=== PATIENT | female | born 1950 ===

== ENCOUNTER 2016-11-19 16:12 | Emergency (ER) | payer OTHER ==
[2016-11-19 16:12] VITALS: BMI 22.2
[2016-11-19 16:17] VITALS: PULSE 78; O2SAT 96
[2016-11-19] MEDS ORDERED: Oxycodone/Acetaminophen 5/325 mg Tab PO STA (17:35)
--- NOTE | 2016-11-19 17:36 | C.PDOC ---
History Of Present Illness A 66 year old female, with a past medical history of HTN, HCL, Asthma, GERD, presents to the emergency room with complaints of right calf pain and right knee pain that has developed over the last 4 weeks. Patient describes the pain as aching and notes that the pain is worst with ambulation. Patient "noted some knee cracking." Patient otherwise denies known trauma or injury, headache, dizziness, chest pain, shortness of breath, cough, dyspnea, palpitation, nausea , vomiting, denies recent travel, any previous history of DVT, or any other complaints. Ambulate to ED for evaluation. Time Seen by Provider: 11/19/16 17:22 Chief Complaint (Nursing): Lower Extremity Problem/Injury History Per: Patient History/Exam Limitations: no limitations Onset/Duration Of Symptoms: Gradual, Other (4 weeks) Current Symptoms Are (Timing): Still Present Severity: Mild Past Medical History Reviewed: Historical Data, Nursing Documentation, Vital Signs Vital Signs: Last Vital Signs Temp 97.2 F L 11/19/16 16:15 Pulse 78 11/19/16 16:15 Resp 16 11/19/16 16:15 BP 164/83 H 11/19/16 16:15 Pulse Ox 96 11/19/16 18:20 - Medical History PMH: Asthma, GERD, HTN, Hypercholesterolemia Family History: States: No Known Family Hx - Social History Hx Alcohol Use: Yes Hx Substance Use: No - Immunization History Hx Influenza Vaccination: No Hx Pneumococcal Vaccination: No Review Of Systems Review Of Systems: ROS cannot be obtained secondary to pt's inabilty to answer questions. Constitutional: Negative for: Fever, Chills Cardiovascular: Negative for: Chest Pain Respiratory: Negative for: Cough, Shortness of Breath Gastrointestinal: Negative for: Nausea, Vomiting, Diarrhea Musculoskeletal: Positive for: Other (Right calf pain; Right knee pain) Physical Exam - Physical Exam Appears: Well, Non-toxic Skin: Normal Color, Warm, Dry, No Rash Head: Atraumatic, Normacephalic Eye(s): bilateral: Normal Inspection, PERRL, EOMI Ear(s): Bilateral: Normal Oral Mucosa: Moist Neck: Normal ROM, No Midline Cervical Tenderness, No Paracervical Tenderness, Supple Cardiovascular: Rhythm Regular Respiratory: Normal Breath Sounds, No Rales, No Rhonchi, No Wheezing Gastrointestinal/Abdominal: Soft, No Tenderness, No Guarding, No Rebound Back: No CVA Tenderness, No Vertebral Tenderness, No Paraspinal Tenderness Extremity: Normal ROM, Tenderness (Diffuse right knee tenderness extending down to right calf.), No Deformity, No Swelling Pulses: Left Dorsalis Pedis: Normal, Right Dorsalis Pedis: Normal Neurological/Psych: Oriented x3, Normal Speech, Normal Cognition, Normal Motor, Normal Sensation, Normal Reflexes Gait: Steady ED Course And Treatment O2 Sat by Pulse Oximetry: 96 Pulse Ox Interpretation: Normal - Other Rad Right knee X-Ray: Interpreted by Me, Viewed By Me Interpretation: (+) DJD, no acute fx or dislocation Progress Note: On re-evaluation, pt is afebrile, hemodynamicaly stable. Non- toxic. AMbulatory in ED with stable gait. RLE: mild Right knee tenderness and calf tenderness r/o DVT. FAROM, no neurovascular deficits. Neurologicaly intact. Pt need Doppler US of RLE that is not available at present time at [facility]. Pt was offered anticoagulation therapy prophylacticly until Doppler test is comform, pt refused at present time. Xray review and appears without acute abnormalities. Pt advised to return to ED tomorrow without fail for Doppler US r/o DVT. pT was explained complication of condition. Pt understand the comdition and Will return tomorrow for further testing. Disposition Counseled Patient/Family Regarding: Studies Performed, Diagnosis, Need For Followup, Rx Given - Disposition Referrals: Sydni Sanchez MD [Medical Doctor] - Disposition: HOME/ ROUTINE Disposition Time: 17:50 Condition: STABLE Additional Instructions: RETURN TO ED TOMORROW 11/20/16 FOR DUPPLER US OF RIGHT LOWER EXTRIMITIES R/O DVT. Prescriptions: oxyCODONE/Acetaminophen [Percocet 5/325 mg Tab] 1 tab PO BID PRN #4 tab PRN Reason: Pain Instructions: Deep Venous Thrombosis (ED), Leg Cramps (ED), Swollen Knee Joint (ED) Print Language: AZERBAIJANI - Clinical Impression Clinical Impression: Arthralgia of knee, Calf pain - Scribe Statement The provider has reviewed the documentation as recorded by the Zelda Salcido Provider Scribe Attestation: All medical record entries made by the Scribe were at my direction and personally dictated by me. I have reviewed the chart and agree that the record accurately reflects my personal performance of the history, physical exam, medical decision making, and the department course for this patient. I have also personally directed, reviewed, and agree with the discharge instructions and disposition.
[2016-11-19] MEDS ORDERED: Oxycodone/Acetaminophen 5/325 mg Tab ONE (17:42)
[2016-11-19 18:21] VITALS: BP 126/71; RESP 18; TEMP 98.2
--- NOTE | 2016-11-19 18:35 | RAD ---
PROCEDURE: Right Knee Radiographs. HISTORY: COMPARISON: None available. FINDINGS: BONES: No acute displaced fracture. Degenerative changes including tenting of the intercondylar notch. JOINTS: No dislocation. JOINT EFFUSION: No significant joint effusion. OTHER FINDINGS: None. IMPRESSION: Degenerative changes including tenting of the intracondylar notch. No acute displaced fracture, dislocation, or significant joint effusion identified. If symptoms persist, or if there is continued clinical concern, x-ray follow-up in 7-10 days should be considered.
== END 2016-11-19 18:25 | disposition home or self-care (01) ==
LOC: C.ER 16:12
DX: M25.561 Pain in right knee (principal); M79.661 Pain in right lower leg

== ENCOUNTER 2016-11-20 07:52 | Emergency (ER) | payer OTHER ==
[2016-11-20 07:53] VITALS: BMI 22.2
--- NOTE | 2016-11-20 08:59 | C.PDOC ---
History Of Present Illness 66 y/o female presents to the ED with complains of pain and swelling to right lower extremity x2 weeks. Pt was seen here yesterday for same, told to return today for doppler to rule out DVT. Pt reports pain with walking 8/10, pain is constant and throbbing. Pt denies headache, nausea, vomiting, diarrhea, chest pain, fever, SOB or any other complaints. PMHx arthritis. Time Seen by Provider: 11/20/16 08:11 Chief Complaint (Nursing): Lower Extremity Problem/Injury History Per: Patient History/Exam Limitations: no limitations Onset/Duration Of Symptoms: Days Current Symptoms Are (Timing): Still Present Severity: Moderate Pain Scale Rating Of: 8 Recent travel outside of the [place]: No Past Medical History Reviewed: Historical Data, Nursing Documentation, Vital Signs Vital Signs: Last Vital Signs Temp 97.8 F 11/20/16 08:00 Pulse 69 11/20/16 08:00 Resp 20 11/20/16 08:00 BP 153/85 H 11/20/16 08:00 Pulse Ox 95 11/20/16 09:01 - Medical History PMH: Asthma, GERD, HTN, Hypercholesterolemia Family History: States: Unknown Family Hx - Social History Hx Alcohol Use: Yes Hx Substance Use: No - Immunization History Hx Influenza Vaccination: Yes Hx Pneumococcal Vaccination: No Review Of Systems Except As Marked, All Systems Reviewed And Found Negative. Constitutional: Negative for: Fever, Chills Cardiovascular: Negative for: Chest Pain Respiratory: Negative for: Shortness of Breath Gastrointestinal: Negative for: Nausea, Vomiting, Diarrhea Musculoskeletal: Positive for: Leg Pain (right lower leg pain and swelling) Neurological: Negative for: Headache Physical Exam - Physical Exam Appears: Non-toxic, No Acute Distress Skin: Warm, Dry, No Rash Head: Atraumatic, Normacephalic Chest: Symmetrical Cardiovascular: Rhythm Regular, No Murmur Respiratory: Normal Breath Sounds, No Rales, No Rhonchi, No Wheezing Gastrointestinal/Abdominal: Soft, No Tenderness Extremity: Normal ROM, No Calf Tenderness, Capillary Refill (<2 seconds), Other (Right lower extremity mild swelling, right leg more firm than left. No redness , no significant edema. Warmth over right knee) Pulses: Left Dorsalis Pedis: Normal, Right Dorsalis Pedis: Normal Neurological/Psych: Oriented x3, Normal Speech, Normal Motor, Normal Sensation ED Course And Treatment O2 Sat by Pulse Oximetry: 95 (room air) Pulse Ox Interpretation: Normal Medical Decision Making Medical Decision Making: Differential Dx: arthritis in knee joints Plan: * Motrin, Venous doppler unremarkable. Patient feeling better. will d/c home. Disposition Counseled Patient/Family Regarding: Studies Performed, Diagnosis, Need For Followup, Rx Given - Disposition Disposition: HOME/ ROUTINE Disposition Time: 10:28 Condition: STABLE Prescriptions: Ibuprofen [Motrin] 600 mg PO TID #15 tab Instructions: Arthritis (ED) Forms: Gen Discharge Inst Estonian - POA Present On Arrival: None - Clinical Impression Clinical Impression: Arthritis - Scribe Statement The provider has reviewed the documentation as recorded by the Zelda Fernandez Provider Attestation: All medical record entries made by the Zelda were at my direction and personally dictated by me. I have reviewed the chart and agree that the record accurately reflects my personal performance of the history, physical exam, medical decision making, and the department course for this patient. I have also personally directed, reviewed, and agree with the discharge instructions and disposition.
[2016-11-20 10:29] VITALS: BP 139/79; PULSE 62; RESP 17; TEMP 97.7
[2016-11-20 10:30] VITALS: O2SAT 95
--- NOTE | 2016-11-20 18:15 | VASCLAB ---
PROCEDURE: Right Lower Extremity Venous Duplex Exam. HISTORY: pain and swelling PRIORS: None. TECHNIQUE: Right common femoral, femoral, popliteal and posterior tibial, peroneal and great saphenous veins were evaluated. Flow was assessed with color Doppler, compressibility, assessment of phasic flow and augmentation response. Report prepared by CONSTANTIN Baker, RVT FINDINGS: RIGHT: 1. Common Femoral Vein: 1.1. Compressibility - Fully compressible: Thrombus - None: Flow - Phasic: Augmentation -Normal: Reflux - None. 2. Femoral Vein: 2.1. Compressibility - Fully compressible: Thrombus - None: Flow - Phasic: Augmentation -Normal: Reflux - None. 3. Popliteal Vein: 3.1. Compressibility - Fully compressible: Thrombus - None: Flow - Phasic: Augmentation -Normal: Reflux - None. 4. Posterior Tibial Vein: 4.1. Compressibility - Fully compressible: Thrombus - None: Flow - Phasic: Augmentation -Normal: Reflux - None. 5. Peroneal Vein: 5.1. Compressibility - Fully compressible: Thrombus - None: Flow - Phasic: Augmentation -Normal: Reflux - None. 6. Great Saphenous Vein: 6.1. Compressibility - Fully compressible: Thrombus -None: Flow - Phasic: Augmentation - Normal: Reflux - None. OTHER FINDINGS: IMPRESSION: No evidence of deep or superficial vein thrombosis of the right lower extremity with excellent venous flow. Normal valve function noted of the right side. Normal venous flow noted in the left common femoral vein.
== END 2016-11-20 11:10 | disposition home or self-care (01) ==
LOC: C.ER 07:52
DX: M13.861 Other specified arthritis, right knee (principal)

== ENCOUNTER → 2017-06-17 15:20 | Emergency (ER) | payer OTHER ==
[2017-06-17 15:21] VITALS: BMI 22.2
== END | disposition left against medical advice (07) ==
LOC: C.ER 15:20
DX: Z02.89 Encounter for other administrative examinations (principal); R53.1 Weakness

== ENCOUNTER 2017-09-01 16:55 | Emergency (ER) | payer OTHER ==
[2017-09-01 16:55] VITALS: BMI 22.2
[2017-09-01 18:12] VITALS: RESP 20
[2017-09-01] MEDS ORDERED: Sodium Chloride 0.9% 1,000 ML IV STA (19:28)
[2017-09-01] MEDS ORDERED: Sodium Chloride 0.9% 1,000 ML ONE (19:40)
--- NOTE | 2017-09-01 20:28 | C.PDOC ---
History Of Present Illness 66 year old female presents to the ED for evaluation of diffuse abdominal pain, nausea, generalized malaise, generalized body aches and several episodes of diarrhea which began yesterday. Patient denies fever, chills, cough, sick contacts and recent travel. Time Seen by Provider: 09/01/17 19:24 Chief Complaint (Nursing): Flu-like Symptoms History Per: Patient History/Exam Limitations: no limitations Onset/Duration Of Symptoms: Hrs Current Symptoms Are (Timing): Still Present Sick Contacts (Context): None Associated Symptoms: Nausea, Diarrhea. denies: Fever, Chills, Cough, Sputum Recent travel outside of the [place]: No Additional History Per: Patient Past Medical History Reviewed: Historical Data, Nursing Documentation, Vital Signs Vital Signs: Last Vital Signs Temp 99.6 F 09/01/17 18:07 Pulse 97 H 09/01/17 18:07 Resp 20 09/01/17 18:07 BP 109/67 09/01/17 18:07 Pulse Ox 96 09/01/17 20:43 - Medical History PMH: Arthritis, Asthma, Gastritis, GERD, HTN, Hypercholesterolemia Surgical History: No Surg Hx Family History: States: Unknown Family Hx - Social History Hx Alcohol Use: No Hx Substance Use: No - Immunization History Hx Tetanus Toxoid Vaccination: Yes Hx Influenza Vaccination: Yes Hx Pneumococcal Vaccination: Yes Review Of Systems Constitutional: Positive for: Malaise. Negative for: Fever, Chills Respiratory: Negative for: Cough, Sputum Gastrointestinal: Positive for: Nausea, Abdominal Pain (diffuse ), Diarrhea Musculoskeletal: Positive for: Other (generalized body aches ) Physical Exam - Physical Exam Appears: Non-toxic, No Acute Distress Skin: Normal Color, Warm, Dry Head: Atraumatic, Normacephalic Eye(s): bilateral: Normal Inspection, PERRL, EOMI Oral Mucosa: Moist Neck: Supple Chest: Symmetrical, No Deformity, No Tenderness Cardiovascular: Rhythm Regular, No Murmur Respiratory: Normal Breath Sounds, No Rales, No Rhonchi, No Wheezing Gastrointestinal/Abdominal: Soft, Tenderness (mild, diffuse ), No Guarding, No Rebound Extremity: Normal ROM, Capillary Refill (less than 2 seconds ) Neurological/Psych: Oriented x3, Normal Speech, Normal Cognition, Normal Motor, Normal Sensation Gait: Steady ED Course And Treatment - Laboratory Results Result Diagrams: 09/01/17 20:18 09/01/17 20:18 O2 Sat by Pulse Oximetry: 96 (on RA) Pulse Ox Interpretation: Normal Progress Note: Bloodwork, urinalysis, Influenza A/B swabs ordered. Patient is negative for Flu A/B. Toradol IVP, Zofran IVP and IV Fluids administered. On reassessment, patient is resting comfortably, showing no signs of distress and reports an improvement in her symptoms. Patient tolerated PO fluidsand is stable for discharge. Pt is advised to follow up with her PMD within 1-2 days for further evaluation and/or return to the ED if symptoms persist or worsen. Reevaluation Time: 21:57 Reassessment Condition: Improved Disposition Counseled Patient/Family Regarding: Diagnosis, Need For Followup, Rx Given - Disposition Referrals: Sydni Sanchez MD [Medical Doctor] - Disposition: HOME/ ROUTINE Disposition Time: 21:57 Condition: STABLE Additional Instructions: Increase PO fluids ( Gatorade, gingerale, sprite, tea No dairy, no solid foods BRAT diet ( May have rice, toast , soup- broth, applesauce, hjello, crackers Return to ER if worse Prescriptions: Ondansetron [Zofran Odt] 4 mg PO TID #6 odt Instructions: Gastroenteritis (ED) Forms: [employer] (Finnish) Print Language: MONGOLIAN - Clinical Impression Clinical Impression: Gastroenteritis, Viral illness - PA / CORPORATE DRIVER / Resident Statement MD/DO has reviewed & agrees with the documentation as recorded. - Scribe Statement The provider has reviewed the documentation as recorded by the Scribe (Saritha Marte) All medical record entries made by the Scribe were at my direction and personally dictated by me. I have reviewed the chart and agree that the record accurately reflects my personal performance of the history, physical exam, medical decision making, and the department course for this patient. I have also personally directed, reviewed, and agree with the discharge instructions and disposition.
[2017-09-01 20:29] LABS: BASO % 0.2 % (0.0-2.0); EOS % 0.3 % (0.0-4.0); HEMOGLOBIN 13.4 g/dL (11.0-16.0); LYMPH # 1.7 K/uL (1.0-4.3); LYMPH % 11.9 % (20.0-40.0); MEAN CELL VOLUME 87.8 fL (81.0-99.0); MEAN CORPUSCULAR HEMOGLOBIN 28.7 pg (27.0-31.0); MEAN CORPUSCULAR HGB CONC 32.7 g/dL (33.0-37.0); MEAN PLATELET VOLUME 8.3 fL (7.2-11.7); MONO % 7.1 % (0.0-10.0); NEUT # 11.5 K/uL (1.8-7.0); NEUT % 80.5 % (50.0-75.0); RBC 4.66 Mil/uL (3.80-5.20); RED CELL DISTRIBUTION WIDTH 13.5 % (11.5-14.5); WHITE BLOOD COUNT 14.3 K/uL (4.8-10.8)
[2017-09-01 20:39] LABS: SQUAMOUS EPITHIAL 2 /hpf (0-5); URINE BILIRUBIN NEGATIVE (NEGATIVE); URINE BLOOD 1+ (NEGATIVE); URINE CLARITY Hazy (Clear); URINE COLOR Yellow (YELLOW); URINE GLUCOSE (UA) NORMAL (Normal); URINE LEUKOCYTE ESTERASE NEG Leu/uL (Negative); URINE NITRATE NEGATIVE (NEGATIVE); URINE PROTEIN NEGATIVE (NEGATIVE); URINE UROBILINOGEN NORMAL mg/dL (0.2-1.0)
[2017-09-01 20:50] LABS: ALB/GLOB RATIO 1.2 (1.0-2.1); ALBUMIN 3.8 g/dL (3.5-5.0); ALT/SGPT 28 U/L (9-52); AST/SGOT 23 U/L (14-36); BLOOD UREA NITROGEN 15 mg/dL (7-17); CALCIUM 8.5 mg/dl (8.6-10.4); GFR AFRICAN-AMERICAN > 60; GFR NON-AFRICAN AMERICAN > 60; LIPASE 68 U/L (23-300)
[2017-09-01 22:16] VITALS: BP 100/60; PULSE 75; TEMP 98.8; O2SAT 95
== END 2017-09-01 22:17 | disposition home or self-care (01) ==
LOC: C.ER 16:55
DX: B34.9 Viral infection, unspecified (principal); K52.9 Noninfective gastroenteritis and colitis, unspecified; E78.00 Pure hypercholesterolemia, unspecified; I10 Essential (primary) hypertension
CPT/HCPCS: 80053; 81001; 83690; 85025; 87804; 96361; 96374; 96375; 99284; J1885; J2405; J7040

== ENCOUNTER 2018-08-28 21:32 | Observation (INO) | payer OTHER ==
[2018-08-28 21:33] VITALS: BMI 22.2
[2018-08-28] MEDS ORDERED: Enoxaparin 40 mg Syringe SC STA (22:09)
[2018-08-28] MEDS ORDERED: Aspirin 325 mg EC Tablets PO STA (22:09)
[2018-08-28] MEDS ORDERED: Enoxaparin 30 mg Syringe ONE (22:38)
[2018-08-28 22:42] LABS: BASO % 0.5 % (0.0-2.0); EOS # 0.2 K/uL (0.0-0.7); EOS % 3.1 % (0.0-4.0); HEMOGLOBIN 13.5 g/dL (11.0-16.0); LYMPH # 3.2 K/uL (1.0-4.3); LYMPH % 46.2 % (20.0-40.0); MEAN CELL VOLUME 88.5 fL (81.0-99.0); MEAN CORPUSCULAR HEMOGLOBIN 29.6 pg (27.0-31.0); MEAN CORPUSCULAR HGB CONC 33.4 g/dL (33.0-37.0); MEAN PLATELET VOLUME 8.3 fL (7.2-11.7); MONO # 0.5 K/uL (0.0-0.8); MONO % 7.6 % (0.0-10.0); NEUT # 2.9 K/uL (1.8-7.0); NEUT % 42.6 % (50.0-75.0); NRBC % 0.1 % (0.0-2.0); RBC 4.58 Mil/uL (3.80-5.20); RED CELL DISTRIBUTION WIDTH 12.8 % (11.5-14.5); WHITE BLOOD COUNT 6.9 K/uL (4.8-10.8)
[2018-08-28 22:48] LABS: INR 0.9; PARTIAL THROMBOPLASTIN TIME 28 SECONDS (21-34)
[2018-08-28 22:49] LABS: D DIMER < 200 ng/mlDDU (0-243); PROTHROMBIN TIME 9.7 SECONDS (9.7-12.2)
[2018-08-28 22:53] LABS: ALB/GLOB RATIO 1.7 (1.0-2.1); ALBUMIN 4.4 g/dL (3.5-5.0); ALT/SGPT 12 U/L (9-52); AST/SGOT 18 U/L (14-36); BLOOD UREA NITROGEN 16 mg/dL (7-17); CALCIUM 9.8 mg/dl (8.6-10.4); GFR NON-AFRICAN AMERICAN > 60
[2018-08-28 23:04] LABS: B-TYPE NATRIURETIC PEPTIDE 62.1 pg/mL (0-900)
--- NOTE | 2018-08-28 23:34 | C.PDOC ---
History Of Present Illness 67 year old female presents to the ER with vague left sided chest pain that is not positionally or digitally reproducible. Denies SOB or palpitations. Time Seen by Provider: 08/28/18 21:53 Chief Complaint (Nursing): Chest Pain History Per: Patient History/Exam Limitations: no limitations Onset/Duration Of Symptoms: Hrs Current Symptoms Are (Timing): Still Present Associated Symptoms: denies: Dyspnea, Other (Palpitations) Modifying Factors: None Exacerbating Factors: None Alleviating Factors: None Recent travel outside of the [place]: No Past Medical History Reviewed: Historical Data, Nursing Documentation, Vital Signs Vital Signs: Last Vital Signs Temp 98.7 F 08/28/18 21:45 Pulse 74 08/28/18 21:45 Resp 20 08/28/18 21:45 BP 180/95 H 08/28/18 21:45 Pulse Ox 96 08/28/18 21:45 - Medical History PMH: Anxiety, Arthritis, Asthma, Depression, Gastritis, GERD, HTN, Hypercholesterolemia Denies: HIV, Chronic Kidney Disease Family History: States: Unknown Family Hx - Social History Hx Alcohol Use: No Hx Substance Use: No - Immunization History Hx Tetanus Toxoid Vaccination: Yes Hx Influenza Vaccination: Yes Hx Pneumococcal Vaccination: Yes Review Of Systems Constitutional: Negative for: Fever, Chills Cardiovascular: Positive for: Chest Pain. Negative for: Palpitations Respiratory: Negative for: Shortness of Breath Gastrointestinal: Negative for: Nausea, Vomiting Neurological: Negative for: Weakness, Numbness Physical Exam - Physical Exam Appears: Non-toxic Skin: Normal Color, Warm, Dry Head: Atraumatic, Normacephalic Eye(s): bilateral: Normal Inspection Oral Mucosa: Moist Chest: Symmetrical, No Tenderness Cardiovascular: Rhythm Regular Respiratory: Normal Breath Sounds, No Rales, No Rhonchi, No Wheezing Gastrointestinal/Abdominal: Soft, No Tenderness Neurological/Psych: Oriented x3, Normal Speech ED Course And Treatment - Laboratory Results Result Diagrams: 08/28/18 22:37 08/28/18 22:37 Lab Results: PT 9.7 SECONDS (9.7-12.2) 08/28/18 22:37 INR 0.9 08/28/18 22:37 APTT 28 SECONDS (21-34) 08/28/18 22:37 D-Dimer, Quantitative < 200 ng/mlDDU (0-243) 08/28/18 22:37 Troponin I < 0.0120 ng/mL (0.00-0.120) 08/28/18 22:37 NT-Pro-B Natriuret Pep 62.1 pg/mL (0-900) 08/28/18 22:37 Total Bilirubin 0.4 mg/dL (0.2-1.3) 08/28/18 22:37 AST 18 U/L (14-36) 08/28/18 22:37 ALT 12 U/L (9-52) 08/28/18 22:37 Alkaline Phosphatase 64 U/L (38-126) 08/28/18 22:37 Total Protein 7.1 g/dL (6.3-8.3) 08/28/18 22:37 Albumin 4.4 g/dL (3.5-5.0) 08/28/18 22:37 Globulin 2.6 gm/dL (2.2-3.9) 08/28/18 22:37 Albumin/Globulin Ratio 1.7 (1.0-2.1) 08/28/18 22:37 Lab Interpretation: Normal (trop neg, d-dimer neg.) ECG: Interpreted By Me ECG Rhythm: Sinus Rhythm ECG Interpretation: Abnormal Rate From EC (t^ inv V4/5, no prior to compare) O2 Sat by Pulse Oximetry: 96 (Room air) Pulse Ox Interpretation: Normal - Radiology CXR: Interpreted by Me CXR Interpretation: Yes: No Acute Disease Progress Note: asa/lovenox given Reevaluation Time: 00:19 Reassessment Condition: Improved - Physician Consult Information Outcome Of Conversation: 2330: calls to Dr. Carla Sanchez- no response. 0030: d/w Dr. Roscoe Marte- ok to adm Medical Decision Making Medical Decision Making: ? angina vs GERD abn EKG without prior to compare asa/lovenox given Disposition Doctor Will See Patient In The: Hospital Counseled Patient/Family Regarding: Studies Performed, Diagnosis - Disposition Disposition: HOSPITALIZED Disposition Time: 00:20 Condition: GOOD Forms: [facility] (Bermudian) - Clinical Impression Clinical Impression: Chest discomfort - Scribe Statement The provider has reviewed the documentation as recorded by the Scribe Avinash Matthew All medical record entries made by the Scribe were at my direction and personally dictated by me. I have reviewed the chart and agree that the record accurately reflects my personal performance of the history, physical exam, medical decision making, and the department course for this patient. I have also personally directed, reviewed, and agree with the discharge instructions and disposition.
--- NOTE | 2018-08-29 09:20 | RAD ---
Date of service: 08/28/2018 PROCEDURE: CHEST RADIOGRAPH, 1 VIEW HISTORY: SOB COMPARISON: None available. FINDINGS: LUNGS: The lungs are well inflated and clear. PLEURA: No pneumothorax or pleural effusion. CARDIOVASCULAR: The heart is normal in size. No aortic atherosclerotic calcifications present. OSSEOUS STRUCTURES: Within normal limits for the patient's age. VISUALIZED UPPER ABDOMEN: Normal. OTHER FINDINGS: None. IMPRESSION: No active pulmonary disease.
[2018-08-29] MEDS: Enoxaparin 40 mg Syringe SC SCH (09:31)
[2018-08-29 10:04] LABS: BASO % 0.6 % (0.0-2.0); EOS # 0.2 K/uL (0.0-0.7); EOS % 2.7 % (0.0-4.0); HEMOGLOBIN 13.8 g/dL (11.0-16.0); LYMPH # 2.7 K/uL (1.0-4.3); LYMPH % 39.9 % (20.0-40.0); MEAN CELL VOLUME 87.6 fL (81.0-99.0); MEAN CORPUSCULAR HEMOGLOBIN 29.8 pg (27.0-31.0); MEAN PLATELET VOLUME 8.5 fL (7.2-11.7); MONO # 0.5 K/uL (0.0-0.8); MONO % 7.7 % (0.0-10.0); NEUT # 3.4 K/uL (1.8-7.0); NEUT % 49.1 % (50.0-75.0); RBC 4.63 Mil/uL (3.80-5.20); RED CELL DISTRIBUTION WIDTH 12.7 % (11.5-14.5); WHITE BLOOD COUNT 6.9 K/uL (4.8-10.8)
[2018-08-29 10:20] LABS: ALB/GLOB RATIO 1.9 (1.0-2.1); ALBUMIN 4.7 g/dL (3.5-5.0); ALT/SGPT 16 U/L (9-52); AST/SGOT 18 U/L (14-36); BLOOD UREA NITROGEN 13 mg/dL (7-17); CALCIUM 9.2 mg/dl (8.6-10.4); GFR NON-AFRICAN AMERICAN > 60
[2018-08-29 17:20] LABS: CK-MB 0.92 ng/mL (0.0-3.38)
[2018-08-29 18:15] LABS: BARBITURATES, UR NEGATIVE (NEGATIVE); BENZODIAZEPINES, UR NEGATIVE (NEGATIVE); OPIATES, UR NEGATIVE (NEGATIVE); PHENCYCLIDINE, UR NEGATIVE (NEGATIVE)
--- NOTE | 2018-08-29 19:30 | CP.PCM.HP ---
History of Present Illness - History of Present Illness History of Present Illness: 67-year-old female patient with past medical history of arthritis, asthma, depression, gastritis, HTN presents to ER with diffuse left-sided chest pain, not reproducible. No history of fever, chills, N, V, D, SOB or palpitations Present on Admission - Present on Admission Any Indicators Present on Admission: No Past Patient History - Infectious Disease Hx of Infectious Diseases: None - Past Medical History & Family History Past Medical History?: Yes - Past Social History Smoking Status: Never Smoked - CARDIAC Hx Hypercholesterolemia: Yes Hx Hypertension: Yes - PULMONARY Hx Asthma: Yes - NEUROLOGICAL Hx Neurological Disorder: No - HEENT Hx HEENT Problems: No - RENAL Hx Chronic Kidney Disease: No - ENDOCRINE/METABOLIC Hx Endocrine Disorders: No - HEMATOLOGICAL/ONCOLOGICAL Hx Human Immunodeficiency Virus (HIV): No - INTEGUMENTARY Hx Dermatological Problems: No - MUSCULOSKELETAL/RHEUMATOLOGICAL Hx Arthritis: Yes - GASTROINTESTINAL Hx Gastritis: Yes - GENITOURINARY/GYNECOLOGICAL Hx Genitourinary Disorders: No - PSYCHIATRIC Hx Anxiety: Yes Hx Depression: Yes Hx Substance Use: No - SURGICAL HISTORY Hx Surgeries: Yes Hx Section: Yes Hx Orthopedic Surgery: Yes Other/Comment: craniotomy with aneurysm clips - ANESTHESIA Hx Anesthesia: Yes Hx Anesthesia Reactions: No Meds Home Medications: Home Medication List Medication Instructions Recorded Confirmed Type Aspirin [Ecotrin] 81 mg PO DAILY #30 tabec 09/01/18 Rx Clopidogrel [Plavix] 75 mg PO DAILY #30 tab 09/01/18 Rx Rosuvastatin Calcium [Crestor] 10 mg PO HS #30 tab 09/01/18 Rx Allergies/Adverse Reactions: Allergies Allergy/AdvReac Type Severity Reaction Status Date / Time No Known Allergies Allergy Verified 06/21/18 20:38 Physical Exam - Constitutional Appears: Well - Head Exam Head Exam: ATRAUMATIC, NORMAL INSPECTION, NORMOCEPHALIC - Eye Exam Eye Exam: EOMI, Normal appearance, PERRL Pupil Exam: NORMAL ACCOMODATION, PERRL - ENT Exam ENT Exam: Mucous Membranes Moist, Normal Exam - Neck Exam Neck exam: Positive for: Normal Inspection - Respiratory Exam Respiratory Exam: Decreased Breath Sounds - Cardiovascular Exam Cardiovascular Exam: REGULAR RHYTHM, +S1, +S2 - GI/Abdominal Exam GI & Abdominal Exam: Diminished Bowel Sounds, Soft - Rectal Exam Rectal Exam: Deferred Results - Vital Signs Recent Vital Signs: Last Vital Signs Temp 97.7 F 08/29/18 15:42 Pulse 86 08/29/18 15:42 Resp 20 08/29/18 15:42 BP 155/83 H 08/29/18 15:42 Pulse Ox 95 08/29/18 15:42 - Labs Result Diagrams: 08/30/18 07:03 08/30/18 07:03 Labs: Laboratory Results - last 24 hr 08/28/18 08/28/18 08/28/18 22:37 22:37 22:37 WBC 6.9 D RBC 4.58 Hgb 13.5 Hct 40.5 MCV 88.5 MCH 29.6 MCHC 33.4 RDW 12.8 Plt Count 183 MPV 8.3 Neut % (Auto) 42.6 L Lymph % (Auto) 46.2 H Grainger % (Auto) 7.6 Eos % (Auto) 3.1 Baso % (Auto) 0.5 Neut # (Auto) 2.9 Lymph # (Auto) 3.2 Grainger # (Auto) 0.5 Eos # (Auto) 0.2 Baso # (Auto) 0.0 PT 9.7 INR 0.9 APTT 28 D-Dimer, Quantitative < 200 Sodium 140 Potassium 4.2 Chloride 106 Carbon Dioxide 25 Anion Gap 13 BUN 16 Creatinine 0.6 L Est GFR ( Amer) > 60 Est GFR (Non-Af Amer) > 60 Random Glucose 114 H D Calcium 9.8 Total Bilirubin 0.4 AST 18 ALT 12 Alkaline Phosphatase 64 Total Creatine Kinase CK-MB (Mass) Troponin I < 0.0120 NT-Pro-B Natriuret Pep 62.1 Total Protein 7.1 Albumin 4.4 Globulin 2.6 Albumin/Globulin Ratio 1.7 Urine Opiates Screen Urine Methadone Screen Ur Barbiturates Screen Ur Phencyclidine Scrn Ur Amphetamines Screen U Benzodiazepines Scrn U Oth Cocaine Metabols U Cannabinoids Screen 08/29/18 08/29/18 08/29/18 10:00 10:00 16:25 WBC 6.9 RBC 4.63 Hgb 13.8 Hct 40.5 MCV 87.6 MCH 29.8 MCHC 34.0 RDW 12.7 Plt Count 183 MPV 8.5 Neut % (Auto) 49.1 L Lymph % (Auto) 39.9 Grainger % (Auto) 7.7 Eos % (Auto) 2.7 Baso % (Auto) 0.6 Neut # (Auto) 3.4 Lymph # (Auto) 2.7 Grainger # (Auto) 0.5 Eos # (Auto) 0.2 Baso # (Auto) 0.0 PT INR APTT D-Dimer, Quantitative Sodium 140 Potassium 4.2 Chloride 104 Carbon Dioxide 25 Anion Gap 15 BUN 13 Creatinine 0.7 Est GFR ( Amer) > 60 Est GFR (Non-Af Amer) > 60 Random Glucose 131 H Calcium 9.2 Total Bilirubin 0.7 AST 18 ALT 16 Alkaline Phosphatase 65 Total Creatine Kinase 38 CK-MB (Mass) 0.92 Troponin I < 0.0120 < 0.0120 NT-Pro-B Natriuret Pep Total Protein 7.1 Albumin 4.7 Globulin 2.5 Albumin/Globulin Ratio 1.9 Urine Opiates Screen Urine Methadone Screen Ur Barbiturates Screen Ur Phencyclidine Scrn Ur Amphetamines Screen U Benzodiazepines Scrn U Oth Cocaine Metabols U Cannabinoids Screen 08/29/18 17:41 WBC RBC Hgb Hct MCV MCH MCHC RDW Plt Count MPV Neut % (Auto) Lymph % (Auto) Grainger % (Auto) Eos % (Auto) Baso % (Auto) Neut # (Auto) Lymph # (Auto) Grainger # (Auto) Eos # (Auto) Baso # (Auto) PT INR APTT D-Dimer, Quantitative Sodium Potassium Chloride Carbon Dioxide Anion Gap BUN Creatinine Est GFR ( Amer) Est GFR (Non-Af Amer) Random Glucose Calcium Total Bilirubin AST ALT Alkaline Phosphatase Total Creatine Kinase CK-MB (Mass) Troponin I NT-Pro-B Natriuret Pep Total Protein Albumin Globulin Albumin/Globulin Ratio Urine Opiates Screen Negative Urine Methadone Screen Negative Ur Barbiturates Screen Negative Ur Phencyclidine Scrn Negative Ur Amphetamines Screen Negative U Benzodiazepines Scrn Negative U Oth Cocaine Metabols Negative U Cannabinoids Screen Negative
[2018-08-30 01:11] LABS: CK-MB 1.33 ng/mL (0.0-3.38)
--- NOTE | 2018-08-30 02:00 | CON ---
DATE: 08/29/2018 CARDIOLOGY CONSULT REASON FOR CONSULTATION: Chest pain. HISTORY OF PRESENT ILLNESS: The patient is a 67-year-old female who denies having any prior cardiac history, presented because of sharp left sided chest pain. The patient denies any history of shortness of breath, diaphoresis, dizziness, or palpitation. SOCIAL HISTORY: The patient is a nonsmoker. MEDICATIONS: Aspirin 325 mg once a day, Lasix 40 mg intravenously daily, Lovenox 40 mg once daily. REVIEW OF SYSTEMS: No productive cough. No fever or chills. No shortness of breath. PHYSICAL EXAMINATION: GENERAL: The patient is an elderly female who does not appear to be in any distress. VITAL SIGNS: Blood pressure 154/83, heart rate 71, temperature 97.3, respirations 21. HEENT: Normocephalic. CHEST: Clear. HEART: S1 and S2 regular. ABDOMEN: Soft. EXTREMITIES: No edema. LABORATORY DATA: Today's hemoglobin and hematocrit, white count, and platelet count are within normal limit. Today's SMA-7 is within normal limit except for glucose of 131. Two sets of troponins are negative. PT, PTT, INR, and D-Dimer are within normal limit. EKG revealed sinus rhythm and consider lateral ischemia. Chest x-ray, borderline cardiomegaly. ASSESSMENT: 1. Chest pain, myocardial infarction is ruled out. 2. Consider diabetes mellitus. RECOMMENDATIONS: Continue aspirin 325 mg once a day, Lasix 40 mg intravenously once a day, Lovenox 40 mg once a day. Obtain an echocardiographic study and screen. Sergey Shaikh MD
[2018-08-30 07:18] LABS: BASO % 0.5 % (0.0-2.0); EOS # 0.3 K/uL (0.0-0.7); EOS % 3.8 % (0.0-4.0); HEMOGLOBIN 14.1 g/dL (11.0-16.0); LYMPH # 3.1 K/uL (1.0-4.3); LYMPH % 43.3 % (20.0-40.0); MEAN CELL VOLUME 87.4 fL (81.0-99.0); MEAN CORPUSCULAR HEMOGLOBIN 29.9 pg (27.0-31.0); MEAN CORPUSCULAR HGB CONC 34.2 g/dL (33.0-37.0); MEAN PLATELET VOLUME 8.8 fL (7.2-11.7); MONO # 0.6 K/uL (0.0-0.8); MONO % 8.2 % (0.0-10.0); NEUT # 3.2 K/uL (1.8-7.0); NEUT % 44.2 % (50.0-75.0); RBC 4.72 Mil/uL (3.80-5.20); RED CELL DISTRIBUTION WIDTH 12.8 % (11.5-14.5); WHITE BLOOD COUNT 7.2 K/uL (4.8-10.8)
[2018-08-30 07:42] LABS: ALB/GLOB RATIO 1.6 (1.0-2.1); ALBUMIN 4.3 g/dL (3.5-5.0); ALT/SGPT 19 U/L (9-52); AST/SGOT 23 U/L (14-36); BLOOD UREA NITROGEN 19 mg/dL (7-17); CALCIUM 9.7 mg/dl (8.6-10.4); GFR NON-AFRICAN AMERICAN > 60
[2018-08-30] MEDS: Enoxaparin 40 mg Syringe SC SCH (09:43)
--- NOTE | 2018-08-30 10:35 | CP.PCM.PN ---
Subjective - Date & Time of Evaluation Date of Evaluation: 08/30/18 Time of Evaluation: 09:30 - Subjective Subjective: clinically same Objective - Vital Signs/Intake and Output Vital Signs (last 24 hours): Temp Pulse Resp BP Pulse Ox 97.5 F L 83 18 133/82 97 08/30/18 07:30 08/30/18 07:30 08/30/18 07:30 08/30/18 09:43 08/30/18 07:30 - Medications Medications: Current Medications Aspirin (Aspirin) 325 mg PO DAILY [facility] Last Admin: 08/30/18 09:43 Dose: 325 mg Enalapril Maleate (Vasotec) 10 mg PO DAILY [facility] Last Admin: 08/30/18 09:43 Dose: 10 mg Enoxaparin Sodium (Lovenox) 40 mg SC DAILY [facility] Last Admin: 08/30/18 09:43 Dose: 40 mg Furosemide (Lasix) 40 mg IVP DAILY [facility] Last Admin: 08/30/18 09:43 Dose: 40 mg Home Med (Alendronate [Fosamax]) 70 mg PO QWK [facility] Ibuprofen (Motrin Tab) 600 mg PO Q6 PRN PRN Reason: Pain, moderate (4-7) Last Admin: 08/29/18 21:12 Dose: 600 mg Rosuvastatin Calcium (Crestor) 20 mg PO HS [facility] Last Admin: 08/29/18 21:13 Dose: 20 mg - Labs Labs: 08/30/18 07:03 08/30/18 07:03 PT 9.7 SECONDS (9.7-12.2) 08/28/18 22:37 INR 0.9 08/28/18 22:37 APTT 28 SECONDS (21-34) 08/28/18 22:37 - Constitutional Appears: Well - Head Exam Head Exam: ATRAUMATIC, NORMAL INSPECTION, NORMOCEPHALIC - Eye Exam Eye Exam: EOMI, Normal appearance, PERRL Pupil Exam: NORMAL ACCOMODATION, PERRL - ENT Exam ENT Exam: Mucous Membranes Moist, Normal Exam - Neck Exam Neck Exam: Full ROM, Normal Inspection. absent: Lymphadenopathy - Respiratory Exam Respiratory Exam: Decreased Breath Sounds - Cardiovascular Exam Cardiovascular Exam: REGULAR RHYTHM, +S1, +S2 - GI/Abdominal Exam GI & Abdominal Exam: Diminished Bowel Sounds - Rectal Exam Rectal Exam: Deferred
[2018-08-30 16:05] VITALS: RESP 20
--- NOTE | 2018-08-30 21:19 | CARD ---
APPROVED REPORT Date of service: 08/30/2018 EXAM: Two-dimensional and M-mode echocardiogram with Doppler and color Doppler. INDICATION Dizziness and Vertigo Chest Pain RISK FACTORS Hypertension Hyperlipidemia 2D DIMENSIONS IVSd1.0 (0.7-1.1cm)Aortic Root (2D)2.7 (2.0-3.7cm) LVDd3.5 (3.9-5.9cm)PWd1.0 (0.7-1.1cm) LA Lzeaou05 (18-58mL)LVDs2.2 (2.5-4.0cm) FS (%) 36.8 %LVEF (%)67.7 (>50%) LVEF (Avila's)58 %IVC0.00 cm M-Mode DIMENSIONS Left Atrium (MM)3.68 (2.5-4.0cm)IVSd0.91 (0.7-1.1cm) Aortic Root2.93 (2.2-3.7cm)LVDd5.08 (4.0-5.6cm) Aortic Cusp Exc.2.02 (1.5-2.0cm)PWd0.91 (0.7-1.1cm) FS (%) 43 %LVDs2.90 (2.0-3.8cm) LVEF (%)70 (>50%) Mitral Valve MV E Scltrtbt98.1cm/sMV A Foheujyf598.3cm/sE/A ratio0.5 TDI Lateral E' Peak V6.55cm/sMedial E' Peak V5.13cm/sE/Lateral E'8.7 E/Medial E'11.1 Tricuspid Valve TR Peak Srzlyfna072cx/sTR Peak Gr.[id number] LEFT VENTRICLE The left ventricle is normal size. There is normal left ventricular wall thickness. Left ventricle systolic function is normal. The Ejection Fraction is 65-70%. There is normal LV segmental wall motion. Tissue Doppler imaging reveals abnormal left ventricular diastolic dysfunction. RIGHT VENTRICLE The right ventricle is normal size. There is normal right ventricular wall thickness. The right ventricular systolic function is normal. ATRIA The left atrium size is normal. The right atrium size is normal. The interatrial septum is intact with no evidence for an atrial septal defect. AORTIC VALVE The aortic valve is normal in structure. No aortic regurgitation is present. There is no aortic valvular stenosis. MITRAL VALVE The mitral valve is normal in structure. There is no evidence of mitral valve prolapse. There is no mitral valve stenosis. Mitral regurgitation is mild. TRICUSPID VALVE The tricuspid valve is normal in structure. There is mild tricuspid regurgitation. Right ventricular systolic pressure is estimated at 30-40 mmHg. There is mild pulmonary hypertension. PULMONIC VALVE The pulmonic valve is not well visualized. There is no pulmonic valvular regurgitation. GREAT VESSELS The aortic root is normal in size. PERICARDIAL EFFUSION There is no significant pericardial effusion. <Conclusion> Left ventricle systolic function is normal. The Ejection Fraction is 65-70%. Diastolic dysfunction. No aortic regurgitation is present. Mitral regurgitation is mild. There is mild tricuspid regurgitation. There is mild pulmonary hypertension. There is no pulmonic valvular regurgitation.
--- NOTE | 2018-08-30 22:52 | PN ---
DATE: 08/30/2018 SUBJECTIVE: The patient denies any chest pain. PHYSICAL EXAMINATION: VITAL SIGNS: Blood pressure 112/67, heart rate 81, temperature 97.9, and respirations 20. HEENT: Normocephalic. CHEST: Clear. HEART: S1 and S2 regular. EXTREMITIES: No edema. LABORATORY DATA: Today's hemoglobin and hematocrit, white count, and platelet count are within normal limit. Today's SMA-7 is within normal limit except for glucose of 119 and BUN of 19. A total of four troponins are negative. Urine drug screen is negative. ASSESSMENT: 1. Chest pain, myocardial infarction is ruled out. 2. Lateral ischemia on electrocardiogram. 3. Diabetes mellitus. RECOMMENDATIONS: Continue current aspirin 325 mg once a day, Crestor 20 mg once a day, Lasix 40 mg intravenously daily, Lovenox 40 mg subcutaneous once a day, Vasotec 10 mg once a day. Repeat 12-lead EKG, and I will follow the echocardiographic study performed today. Sergey Shaikh MD
[2018-08-31] MEDS: Enoxaparin 40 mg Syringe SC SCH (09:40)
--- NOTE | 2018-08-31 16:28 | CP.PCM.PN ---
Subjective - Date & Time of Evaluation Date of Evaluation: 08/31/18 Time of Evaluation: 09:00 - Subjective Subjective: clinically same Objective - Vital Signs/Intake and Output Vital Signs (last 24 hours): Temp Pulse Resp BP Pulse Ox 98.1 F 78 20 150/83 95 08/31/18 15:00 08/31/18 15:00 08/31/18 15:00 08/31/18 15:00 08/31/18 15:00 Intake and Output: 08/31/18 08/31/18 06:59 18:59 Intake Total 480 Balance 480 - Medications Medications: Current Medications Aspirin (Aspirin) 325 mg PO DAILY [facility] Last Admin: 08/31/18 09:40 Dose: 325 mg Enalapril Maleate (Vasotec) 10 mg PO DAILY [facility] Last Admin: 08/31/18 09:40 Dose: 10 mg Enoxaparin Sodium (Lovenox) 40 mg SC DAILY [facility] Last Admin: 08/31/18 09:40 Dose: 40 mg Home Med (Alendronate [Fosamax]) 70 mg PO QWK [facility] Ibuprofen (Motrin Tab) 600 mg PO Q6 PRN PRN Reason: Pain, moderate (4-7) Last Admin: 08/29/18 21:12 Dose: 600 mg Rosuvastatin Calcium (Crestor) 20 mg PO HS [facility] Last Admin: 08/30/18 21:10 Dose: 20 mg - Labs Labs: 08/30/18 07:03 08/30/18 07:03 PT 9.7 SECONDS (9.7-12.2) 08/28/18 22:37 INR 0.9 08/28/18 22:37 APTT 28 SECONDS (21-34) 08/28/18 22:37 - Constitutional Appears: Well - Head Exam Head Exam: ATRAUMATIC, NORMAL INSPECTION, NORMOCEPHALIC - Eye Exam Eye Exam: EOMI, Normal appearance, PERRL Pupil Exam: NORMAL ACCOMODATION, PERRL - ENT Exam ENT Exam: Mucous Membranes Moist, Normal Exam - Neck Exam Neck Exam: Full ROM, Normal Inspection. absent: Lymphadenopathy - Respiratory Exam Respiratory Exam: Decreased Breath Sounds - Cardiovascular Exam Cardiovascular Exam: REGULAR RHYTHM, +S1, +S2 - GI/Abdominal Exam GI & Abdominal Exam: Soft, Diminished Bowel Sounds - Rectal Exam Rectal Exam: Deferred
--- NOTE | 2018-08-31 19:05 | PN ---
DATE: 08/31/2018 SUBJECTIVE: The patient denies any chest pain. OBJECTIVE: VITAL SIGNS: Blood pressure 134/76, heart rate 74, temperature 98, respirations 20. HEENT: Normocephalic. CHEST: Clear. HEART: S1, S2, regular. ABDOMEN: Soft. EXTREMITIES: No edema. LABORATORY DATA: Repeat EKG revealed resolution of the lateral T-wave inversion. The echocardiographic study revealed normal ejection fraction, mild pulmonary hypertension. ASSESSMENT: 1. Chest pain, myocardial infarction is ruled out. 2. Hypertension. RECOMMENDATIONS: The patient is to continue current aspirin, Crestor, Lasix and subcutaneous Lovenox. The patient can be scheduled for treadmill stress test as an outpatient. Sergey Shaikh MD
[2018-09-01 00:18] VITALS: TEMP 97.9
[2018-09-01 07:57] VITALS: O2SAT 96
[2018-09-01 09:09] VITALS: BP 130/82
[2018-09-01] MEDS: Enoxaparin 40 mg Syringe SC SCH (09:09)
[2018-09-01 09:10] VITALS: PULSE 67
--- NOTE | 2018-09-01 12:19 | CP.PCM.PN ---
Subjective - Date & Time of Evaluation Date of Evaluation: 09/01/18 Time of Evaluation: 12:16 - Subjective Subjective: Dr. Marte's Service Progress Note 67 yo ,f, PMHx/o Asthma, GERD, HTN, HLD, Arhritis, Anxiety brought in complaining of chest pain for the past couple of days. Patient reports it being located mid-sternally with radiation sometimes to the left arm. Patient seen and examined at bedside .Per nursing non acute events occurred overnight. Patient denies any chest pain, fevers, chills, abdominal pain, syncopal episodes, or any other complaints. Medical history:Asthma, GERD, HTN, HLD, Arhritis, Anxiety Surgical history: 3 c-sections Allergies: Denies Social history: Denies alcohol and tobacco use. Denies illicit drug use. Objective - Vital Signs/Intake and Output Vital Signs (last 24 hours): Temp Pulse Resp BP Pulse Ox 97.9 F 67 20 130/82 96 09/01/18 07:55 09/01/18 09:10 09/01/18 07:55 09/01/18 09:10 09/01/18 07:55 - Medications Medications: Current Medications Aspirin (Aspirin) 325 mg PO DAILY [facility] Last Admin: 09/01/18 09:09 Dose: 325 mg Enalapril Maleate (Vasotec) 10 mg PO DAILY [facility] Last Admin: 09/01/18 09:09 Dose: 10 mg Enoxaparin Sodium (Lovenox) 40 mg SC DAILY [facility] Last Admin: 09/01/18 09:09 Dose: 40 mg Home Med (Alendronate [Fosamax]) 70 mg PO QWK [facility] Ibuprofen (Motrin Tab) 600 mg PO Q6 PRN PRN Reason: Pain, moderate (4-7) Last Admin: 08/29/18 21:12 Dose: 600 mg Rosuvastatin Calcium (Crestor) 20 mg PO HS [facility] Last Admin: 08/31/18 21:12 Dose: 20 mg - Labs Labs: 08/30/18 07:03 08/30/18 07:03 PT 9.7 SECONDS (9.7-12.2) 08/28/18 22:37 INR 0.9 08/28/18 22:37 APTT 28 SECONDS (21-34) 08/28/18 22:37 - Head Exam Head Exam: ATRAUMATIC, NORMAL INSPECTION - Eye Exam Eye Exam: EOMI, Normal appearance, PERRL Pupil Exam: NORMAL ACCOMODATION - ENT Exam ENT Exam: Mucous Membranes Moist, Normal Oropharynx - Respiratory Exam Respiratory Exam: Clear to Ausculation Bilateral, NORMAL BREATHING PATTERN. absent: Respiratory Distress - Cardiovascular Exam Cardiovascular Exam: REGULAR RHYTHM, +S1, +S2. absent: Rubs - Neurological Exam Neurological Exam: Alert, Awake, Oriented x3 - Psychiatric Exam Psychiatric exam: Normal Affect, Normal Mood - Skin Skin Exam: Dry, Intact Assessment and Plan - Assessment and Plan (Free Text) Assessment: 67 year old female with a past medical history of presents with chest pain. Plan: 1.Chest pain r/o ACS -Troponin (-)x4 -Asprin 325mg PO Daily SC H -Cardiology consulted Dr. Ohara : The patient is to continue on current aspirin, Crestor, Lasix and subcu taneous Lovenox. OP Stress Test -Echo: [id number]% Mild triscuspid regurgitation Mild pulmonary hypertension Diastolic dysfunction 2.Hypertension Medications: Enalapril 10mg PO Daily 3.Hyperlipidemia Medications: Rosuvastatin 20mg PO HS YURIY PPX -Lovenox Dispo: Patient to be discharged on Aspirin, Plavix, and Crestor. Follow up with Cardiology for outpatient stress test. All management Per Dr. Roscoe Marte. Porfirio Rosas, PGY-2 Discharge Instructions: 1. F/u with PMD within 5 days of discharge. 2. F/u with Cardiology for OP stress test within 5 days of discharge. 3. Return to hospital for any new or worsening symptoms. Medications: 1.Aspirin 81mg PO Daily, 30, No refills. 2. Plavix 75mg PO Daily, #30, No refills 3.Crestor 10mg PO HS, #30, No refills
--- NOTE | 2018-09-01 14:54 | CP.PCM.PN ---
Subjective - Date & Time of Evaluation Date of Evaluation: 09/01/18 Time of Evaluation: 10:00 - Subjective Subjective: clinically same Objective - Vital Signs/Intake and Output Vital Signs (last 24 hours): Temp Pulse Resp BP Pulse Ox 97.9 F 67 20 130/82 96 09/01/18 07:55 09/01/18 09:10 09/01/18 07:55 09/01/18 09:10 09/01/18 07:55 - Labs Labs: 08/30/18 07:03 08/30/18 07:03 PT 9.7 SECONDS (9.7-12.2) 08/28/18 22:37 INR 0.9 08/28/18 22:37 APTT 28 SECONDS (21-34) 08/28/18 22:37
--- NOTE | 2018-09-02 13:32 | CARD ---
APPROVED REPORT Date of service: 08/30/2018 EKG Measurement Heart [id number] <Conclusion> Normal sinus rhythm Nonspecific T wave abnormality Abnormal ECG
[2018-09-05] MEDS ORDERED: Home Med 1 UNIT (Alendronate [Fosamax] 70 MG) PO SCH (10:00)
== END 2018-09-01 14:20 | disposition home or self-care (01) ==
LOC: C.ER 21:32 → C.9E 08-29 00:20 → C.5S 08-29 06:58
PROVIDERS: ADMIT Internal Medicine Nephrology; ATTEND Internal Medicine Nephrology
DX: R07.89 Other chest pain (principal); I10 Essential (primary) hypertension; J45.909 Unspecified asthma, uncomplicated; K21.9 Gastro-esophageal reflux disease without esophagitis; E78.00 Pure hypercholesterolemia, unspecified; F41.9 Anxiety disorder, unspecified; F32.9 Major depressive disorder, single episode, unspecified; Z87.19 Personal history of other diseases of the digestive system; Z79.01 Long term (current) use of anticoagulants; Z79.82 Long term (current) use of aspirin; Z79.899 Other long term (current) drug therapy
CPT/HCPCS: 36415; 71045; 80053; 80324; 80345; 80346; 80349; 80353; 80358; 80361; 83880; 83992; 84484; 85025; 85378; 85610; 85730; 93306; 96372; 97116; 97161; 97530; 99285; G0378; G8978; G8979; G8980; J1650; J1940

== ENCOUNTER 2018-11-12 11:32 | Emergency (ER) | payer OTHER ==
[2018-11-12 11:37] VITALS: BMI 26.2
[2018-11-12] MEDS ORDERED: Sodium Chloride 0.9% 1,000 ML IV SCH (12:15)
[2018-11-12 12:21] LABS: BASO % 0.5 % (0.0-2.0); EOS # 0.1 K/uL (0.0-0.7); EOS % 1.8 % (0.0-4.0); HEMOGLOBIN 13.5 g/dL (11.0-16.0); LYMPH # 2.9 K/uL (1.0-4.3); LYMPH % 38.1 % (20.0-40.0); MEAN CELL VOLUME 87.6 fL (81.0-99.0); MEAN CORPUSCULAR HEMOGLOBIN 29.9 pg (27.0-31.0); MEAN CORPUSCULAR HGB CONC 34.1 g/dL (33.0-37.0); MEAN PLATELET VOLUME 8.9 fL (7.2-11.7); MONO # 0.6 K/uL (0.0-0.8); MONO % 7.9 % (0.0-10.0); NEUT # 3.9 K/uL (1.8-7.0); NEUT % 51.7 % (50.0-75.0); NRBC % 0.1 % (0.0-2.0); RBC 4.54 Mil/uL (3.80-5.20); RED CELL DISTRIBUTION WIDTH 12.8 % (11.5-14.5); WHITE BLOOD COUNT 7.5 K/uL (4.8-10.8)
[2018-11-12 12:29] LABS: PROTHROMBIN TIME 10.7 SECONDS (9.7-12.2)
[2018-11-12 12:40] LABS: ALB/GLOB RATIO 1.8 (1.0-2.1); ALBUMIN 4.5 g/dL (3.5-5.0); ALT/SGPT 14 U/L (9-52); AST/SGOT 21 U/L (14-36); BLOOD UREA NITROGEN 21 mg/dL (7-17); CALCIUM 9.7 mg/dl (8.6-10.4); GFR NON-AFRICAN AMERICAN > 60; HDL CHOLESTEROL 48 mg/dL (30-70)
[2018-11-12 12:51] LABS: LDL CHOLESTEROL 137 mg/dL (0-129)
[2018-11-12] MEDS ORDERED: Sodium Chloride 0.9% 1,000 ML ONE (12:59)
--- NOTE | 2018-11-12 13:08 | CT ---
Date of service: 11/12/2018 PROCEDURE: CT HEAD WITHOUT CONTRAST. HISTORY: Dizziness COMPARISON: 02/26/2015. TECHNIQUE: Axial computed tomography images were obtained through the head/brain without intravenous contrast. Radiation dose: Total exam DLP = 972.38 mGy-cm. This CT exam was performed using one or more of the following dose reduction techniques: Automated exposure control, adjustment of the mA and/or kV according to patient size, and/or use of iterative reconstruction technique. FINDINGS: HEMORRHAGE: No intracranial hemorrhage. BRAIN: There are mild chronic microangiopathic changes. There is no mass, mass effect or abnormal extra-axial fluid collection. There is no territorial infarction. The midline sagittal structures are normal. Status post clipping of right ICA/MCA aneurysm. VENTRICLES: There is mild age-related global parenchymal volume loss and proportionate enlargement of the ventricles and cortical sulci with frontal lobe predominance. CALVARIUM: There is no calvarial fracture or extracranial soft tissue swelling. Status post right frontal and pterional craniotomy. PARANASAL SINUSES: Predominantly clear. MASTOID AIR CELLS: Predominantly clear. OTHER FINDINGS: None. IMPRESSION: No acute intracranial abnormality. Status post clipping of a right ICA/MCA aneurysm. Mild age-related global parenchymal volume loss with frontal predominance.
--- NOTE | 2018-11-12 13:58 | C.PDOC ---
History Of Present Illness 68 year old female presents to the ED BIBA for evaluation of dizziness. Reports she started feeling dizzy around 10:00 this morning and felt like the room was spinning around her. Denies any headache, nausea, vomiting, numbness, weakness or tingling in extremities, shortness of breath, difficulty speaking, syncope, or falls. As per EMS, patient's blood pressure was in the low 200s upon arrival. Time Seen by Provider: 11/12/18 11:43 Chief Complaint (Nursing): Dizziness/Lightheaded History Per: Patient History/Exam Limitations: no limitations Onset/Duration Of Symptoms: Hrs Current Symptoms Are (Timing): Gone Past Medical History Reviewed: Historical Data, Nursing Documentation, Vital Signs Vital Signs: Last Vital Signs Temp 98.4 F 11/12/18 11:37 Pulse 68 11/12/18 11:37 Resp 20 11/12/18 11:37 BP 180/100 H 11/12/18 11:37 Pulse Ox 97 11/12/18 11:37 - Medical History PMH: Anxiety, Arthritis, Asthma, Depression, Gastritis, GERD, HTN, Hypercholesterolemia Denies: HIV, Chronic Kidney Disease Surgical History: Family History: States: No Known Family Hx - Social History Hx Alcohol Use: No Hx Substance Use: No - Immunization History Hx Tetanus Toxoid Vaccination: Yes Hx Influenza Vaccination: No Hx Pneumococcal Vaccination: Yes Review Of Systems Constitutional: Negative for: Fever, Chills Respiratory: Negative for: Shortness of Breath Gastrointestinal: Negative for: Nausea, Vomiting, Diarrhea Neurological: Positive for: Dizziness. Negative for: Weakness, Numbness, Headache, Other (tingling, syncope ) Physical Exam - Physical Exam Appears: Non-toxic, No Acute Distress Skin: Warm, Dry, No Rash Head: Normacephalic Eye(s): bilateral: Normal Inspection, PERRL, EOMI Neck: Supple Chest: Symmetrical Cardiovascular: Rhythm Regular Respiratory: Normal Breath Sounds, No Rales, No Rhonchi, No Wheezing Gastrointestinal/Abdominal: Soft, No Tenderness Extremity: Bilateral: Atraumatic, Normal Color And Temperature, Normal ROM, Other (5/5 strength upper and lower extremities ) Neurological/Psych: Oriented x3, Normal Speech, Normal Motor, Normal Sensation Gait: Steady ED Course And Treatment - Laboratory Results Result Diagrams: 11/12/18 12:15 11/12/18 12:15 Lab Results: PT 10.7 SECONDS (9.7-12.2) 11/12/18 12:15 INR 1.0 11/12/18 12:15 APTT 28.0 SECONDS (21-34) 11/12/18 12:15 Troponin I < 0.0120 ng/mL (0.00-0.120) 11/12/18 12:15 Total Bilirubin 0.6 mg/dL (0.2-1.3) 11/12/18 12:15 AST 21 U/L (14-36) 11/12/18 12:15 ALT 14 U/L (9-52) 11/12/18 12:15 Alkaline Phosphatase 59 U/L (38-126) 11/12/18 12:15 Total Protein 7.1 g/dL (6.3-8.3) 11/12/18 12:15 Albumin 4.5 g/dL (3.5-5.0) 11/12/18 12:15 Globulin 2.5 gm/dL (2.2-3.9) 11/12/18 12:15 Albumin/Globulin Ratio 1.8 (1.0-2.1) 11/12/18 12:15 O2 Sat by Pulse Oximetry: 97 (RA) Pulse Ox Interpretation: Normal - CT Scan/US CT Head Other Rad Studies (CT/US): Read By Radiologist, Radiology Report Reviewed CT/US Interpretation: Accession No. : [id number]. Patient Name / ID : CARLOS LIANG / [id number]. Exam Date : 11/12/2018 12:35:53 ( Approved ). Study Comment : Sex / Age : F / 68Y. Creator : Darby Means. Dictator : Parul Vazquez MD. Mud Analysis Operator : Head Teacher : Parul Vazquez MD. Approver2 : Report Date : 11/12/2018 12:56:51. My Comment : . Date of service: 11/12/2018. PROCEDURE: CT HEAD WITHOUT CONTRAST. HISTORY: Dizziness. COMPARISON: 02/26/2015. TECHNIQUE: Axial computed tomography images were obtained through the head/brain without intravenous contrast. Radiation dose: Total exam DLP = 972.38 mGy-cm. This CT exam was performed using one or more of the following dose reduction techniques: Automated exposure control, adjustment of the mA and/or kV according to patient size, and/or use of iterative reconstruction technique. FINDINGS: HEMORRHAGE: No intracranial hemorrhage. BRAIN: There are mild chronic microangiopathic changes. There is no mass, mass effect or abnormal extra-axial fluid collection. There is no territorial infarction. The midline sagittal structures are normal. Status post clipping of right ICA/MCA aneurysm. VENTRICLES: There is mild age-related global parenchymal volume loss and proportionate enlargement of the ventricles and cortical sulci with frontal lobe predominance. CALVARIUM: There is no calvarial fracture or extracranial soft tissue swelling. Status post right frontal and pterional craniotomy. PARANASAL SINUSES: Predominantly clear. MASTOID AIR CELLS: Predominantly clear. OTHER FINDINGS: None. IMPRESSION: No acute intracranial abnormality. Status post clipping of a right ICA/MCA aneurysm. Mild age-related global parenchymal volume loss with frontal predominance. Medical Decision Making Medical Decision Making: Plan - EKG - CXR - IV fluids - CT Head - Bloodwork Imaging and labs unremarkable. Patient given IV fluids with improvement of symptoms. She displayed no other neurological deficits throughout ED course. Speech normal, no tongue numbness or heaviness. BP improved throughout ED course as well. On re-eval patient states that she feels better, dizziness has resolved, and she is amenable to discharge home. Advised outpatient followup as needed. Return to the ED for any new or worsening symptoms. Disposition - Disposition Disposition: HOME/ ROUTINE Disposition Time: 15:30 Condition: STABLE Additional Instructions: AZUL GONZALEZ, thank you for letting us take care of you today. Your provider was Gloria Dotson MD and you were treated for HIGH BLOOD PRESSURE. The emergency medical care you received today was directed at your acute symptoms. If you were prescribed any medication, please fill it and take as directed. It may take several days for your symptoms to resolve. Return to the Emergency Department if your symptoms worsen, do not improve, or if you have any other problems. Please contact your doctor or call one of the physicians/clinics you have been referred to that are listed on the Patient Visit Information form that is included in your discharge packet. Bring any paperwork you were given at discharge with you along with any medications you are taking to your follow up visit. Our treatment cannot replace ongoing medical care by a primary care provider outside of the emergency department. Thank you for allowing the [email or web address] team to be part of your care today. If you had an X-Ray or CT scan: A Radiologist will review the ED reading if any change in treatment is needed we will contact you. If you had a blood, urine, or wound culture: It will take several days for the results, if any change in treatment is needed we will contact you. If you had an STI test: It will take 48 hours for the results. Please call after 1 week if you have not heard back. Instructions: Vertigo (a Type of Dizziness) (DC) Forms: [employer] (Congolese) Print Language: NAURUAN - Clinical Impression Clinical Impression: Dizziness, Hypertension - Scribe Statement The provider has reviewed the documentation as recorded by the Scribe Jenni Ramirez All medical record entries made by the Zelda were at my direction and personally dictated by me. I have reviewed the chart and agree that the record accurately reflects my personal performance of the history, physical exam, medical decision making, and the department course for this patient. I have also personally directed, reviewed, and agree with the discharge instructions and disposition.
[2018-11-12 14:44] VITALS: BP 151/63; PULSE 70; RESP 14; TEMP 97.8
--- NOTE | 2018-11-12 18:42 | RAD ---
Date of service: 11/12/2018 HISTORY: Code Stroke COMPARISON: 08/28/2018. FINDINGS: LUNGS: The lungs are well inflated and clear. PLEURA: No pleural effusions or pneumothorax. CARDIOVASCULAR: There is mild cardiomegaly. No aortic atherosclerotic calcifications present. OSSEOUS STRUCTURES: Within normal limits for the patient's age. VISUALIZED UPPER ABDOMEN: Normal. OTHER FINDINGS: None. IMPRESSION: No active pulmonary disease.
--- NOTE | 2018-11-13 19:45 | CARD ---
APPROVED REPORT Date of service: 11/12/2018 EKG Measurement Heart [id number] MD [id number] <Conclusion> Normal sinus rhythm T wave abnormality, consider anterolateral ischemia Abnormal ECG
[2018-11-14 13:09] VITALS: O2SAT 97
== END 2018-11-12 15:32 | disposition home or self-care (01) ==
LOC: C.ER 11:32
DX: R42 Dizziness and giddiness (principal); I10 Essential (primary) hypertension
CPT/HCPCS: 70450; 71045; 80053; 80061; 82948; 84484; 85025; 85610; 85730; 93005; 96360; 96361; 99285; J7030